=== PATIENT | male | born 1985 | race Caucasian/White ===

== ENCOUNTER 2017-04-01 21:03 | Emergency (ER) | payer SELFPAY ==
--- NOTE | ~2017-04-01 | ER ---
ADMIT: 04/01/2017 RM/LOC: ER [facility] MR#: [id number] [address] [id number] [address] [place] [address] Emergency Room Report SEX: M AGE: 31 : 1985 DATE: 04/01/2017 ADDENDUM: A 31-year-old male, comes in with approximately 1 day of left testicular pain and swelling. He has never had trouble like this before and denies any trauma. He has not had any fevers, chills, nausea, vomiting, any sores or drainage from his penis. He has not had any skin lesions or rashes in the area and has not had any unprotected sex. On examination, he does have some tenderness, primarily in the area of his epididymis, and the left testicle does appear to be slightly enlarged with comparison to the right. There are no other lesions in his groin that are noticed. His ultrasound did not show any obvious abnormality, had good flow to both testicles. Urine showed that he had 10 white blood cells in his urine, otherwise unremarkable. Due to his symptoms and his exam with obvious tenderness over his epididymis, I am going to treat him like epididymitis. He is given ceftriaxone 250 mg IM, azithromycin 1 g p.o., and Zofran 4 mg ODT in the Emergency Department. He is discharged home to follow up with his doctor at [facility] or Dr. Martins if not significantly better in the next several days. He is to use ibuprofen for pain and wear tight-fitting underwear for the next several days. DIAGNOSES: 1. Epididymitis. 2. Left testicle pain. Rober Gillespie MD/ augusto JOB #: [id number] CC: Rober Gillespie MD, Attending Physician Luis Martins MD, Family Physician
== END 2017-04-01 23:12 | disposition home or self-care (01) ==
LOC: ER 21:03
DX: N45.1 Epididymitis (principal); I10 Essential (primary) hypertension; F41.9 Anxiety disorder, unspecified; Z90.49 Acquired absence of other specified parts of digestive tract; Z79.899 Other long term (current) drug therapy